=== PATIENT | female | born 1975 | race Caucasian/White ===

== ENCOUNTER 2023-08-16 19:24 | Inpatient (IN) | payer OTHER ==
[~2023-08-16] VITALS: Ht 162.6 cm; Wt 52.2 kg
[2023-08-16 19:30] VITALS: BP_SYST 103; PULSE 67; RESP 18; TEMP 98.2; O2SAT 100
[2023-08-16 19:41] VITALS: BP_SYST 141; PULSE 84; RESP 20; TEMP 97.8; O2SAT 97
[2023-08-16 20:50] LABS: BILIRUBIN,URINE NEGATIVE (NEGATIVE); BLOOD, URINE 1+ (NEGATIVE); CLARITY/URINE CLEAR (CLEAR); COLOR,URINE YELLOW (YELLOW); GLUCOSE,URINE NEGATIVE (NEGATIVE); KETONES,URINE 1+ (NEGATIVE); LEUKOCYTE ESTERASE ,URINE NEGATIVE (NEGATIVE); NITRITE, URINE NEGATIVE (NEGATIVE); PH,URINE 6.5 (5.0-8.0); PROTEIN URINE NEGATIVE (NEGATIVE); UROBILINOGEN,URINE 0.2 (0.2-1.0)
[2023-08-16] MEDS ORDERED: NACL 0.9% 1,000 ML IV ONE (21:15)
[2023-08-16 21:17] LABS: BACTERIA,URINE None Seen /HPF (None Seen)
[2023-08-16] MEDS ORDERED: PIPERACILLIN/TAZO 3.375 GM in NS 50 ML IV ONE (21:30)
[2023-08-16 21:31] LABS: CALCIUM 9.7 mg/dL (8.4-11.0); CREATININE 0.8 mg/dL (0.55-1.30); POTASSIUM 3.9 mmol/L (3.5-5.1)
[2023-08-16 21:34] LABS: BASOPHILS # (AUTO) 0.1 K/uL (0.0-0.2); BASOPHILS % (AUTO) 0.5 % (0.0-2.0); EOSINOPHILS % (AUTO) 0.1 % (0.0-4.0); HEMATOCRIT 39.9 % (36-48); HEMOGLOBIN 13.6 g/dL (12.0-16.0); LYMPHOCYTES # (AUTO) 1.7 K/uL (1.0-5.5); LYMPHOCYTES % (AUTO) 14.6 % (20.5-51.5); MEAN CORPUSCULAR HEMOGLOBIN 31 pg (27-31); MEAN CORPUSCULAR HGB CONC 34 % (32-36); MEAN CORPUSCULAR VOLUME 92 fL (79.0-98.0); MONOCYTES # (AUTO) 0.6 K/uL (0.0-1.0); NEUTROPHILS # (AUTO) 9.4 K/uL (1.8-7.7); NEUTROPHILS % (AUTO) 79.8 % (40.0-70.0); PLATELET COUNT (AUTO) 340 K/uL (130-430); RED BLOOD CELL COUNT(AUTO) 4.34 MIL/uL (4.2-6.2); RED CELL DISTRIBUTION WIDTH 13.1 % (9.0-15.0); WHITE BLOOD COUNT (AUTO) 11.7 K/uL (4.8-10.8)
[2023-08-16 21:42] LABS: ALBUMIN 3.9 g/dL (3.4-4.8); TOTAL BILIRUBIN 0.6 mg/dL (0.0-1.0); TOTAL PROTEIN, SERUM 8.2 g/dL (6.4-8.3)
[2023-08-16] MEDS: PIPERACILLIN/TAZO 3.375 GM in NS 50 ML IV SCH (22:00)
[2023-08-16] MEDS ORDERED: PIPERACILLIN/TAZOBACTAM 3.375 GM/VIAL (ZOSYN) IV ONE (22:03)
[2023-08-17] MEDS: D5/0.45 NS 1,000 ML IV SCH ×2 (01:41→22:13)
[2023-08-17] MEDS: PIPERACILLIN/TAZO 3.375 GM in NS 50 ML IV SCH ×3 (06:00→22:13)
[2023-08-17] MEDS ORDERED: HYDROmorphone 1 MG/ML INJ. CARTRIDGE IVP PRN ×4 (06:45→07:00)
[2023-08-17] MEDS ORDERED: ONDANSETRON HCL 4 MG/2 ML VIAL IVP PRN (06:45)
[2023-08-17 07:00] VITALS: O2SAT 100
[2023-08-17 08:00] VITALS: BP_SYST 109; PULSE 68; RESP 16; TEMP 98; O2SAT 90
[2023-08-17 12:00] VITALS: BP_SYST 112; PULSE 70; RESP 17; TEMP 98.6; O2SAT 95
[2023-08-17 19:00] VITALS: O2SAT 98
[2023-08-17] MEDS ORDERED: PANTOPRAZOLE SODIUM 40 MG/VIAL (PROTONIX) IVP ONE (19:15)
[2023-08-17 20:00] VITALS: BP_SYST 106; PULSE 64; RESP 16; TEMP 99; O2SAT 98
[2023-08-18 00:06] VITALS: BP_SYST 95; PULSE 65; RESP 16; TEMP 97.5; O2SAT 98
[2023-08-18] MEDS: D5/0.45 NS 1,000 ML IV SCH (04:00)
[2023-08-18 05:32] LABS: BASOPHILS # (AUTO) 0.1 K/uL (0.0-0.2); BASOPHILS % (AUTO) 1.1 % (0.0-2.0); EOSINOPHILS # (AUTO) 0.1 K/uL (0.0-0.4); EOSINOPHILS % (AUTO) 2.5 % (0.0-4.0); HEMATOCRIT 35.1 % (36-48); HEMOGLOBIN 11.6 g/dL (12.0-16.0); LYMPHOCYTES % (AUTO) 34.2 % (20.5-51.5); MEAN CORPUSCULAR HEMOGLOBIN 31 pg (27-31); MEAN CORPUSCULAR HGB CONC 33 % (32-36); MEAN CORPUSCULAR VOLUME 93 fL (79.0-98.0); MONOCYTES # (AUTO) 0.6 K/uL (0.0-1.0); MONOCYTES % (AUTO) 10.9 % (1.7-9.3); NEUTROPHILS # (AUTO) 2.9 K/uL (1.8-7.7); NEUTROPHILS % (AUTO) 51.3 % (40.0-70.0); PLATELET COUNT (AUTO) 269 K/uL (130-430); RED BLOOD CELL COUNT(AUTO) 3.78 MIL/uL (4.2-6.2); RED CELL DISTRIBUTION WIDTH 13.2 % (9.0-15.0); WHITE BLOOD COUNT (AUTO) 5.7 K/uL (4.8-10.8)
[2023-08-18 05:37] LABS: CALCIUM 8.9 mg/dL (8.4-11.0); CREATININE 0.82 mg/dL (0.55-1.30); POTASSIUM 3.8 mmol/L (3.5-5.1)
[2023-08-18] MEDS: PIPERACILLIN/TAZO 3.375 GM in NS 50 ML IV SCH (05:45)
[2023-08-18 07:30] VITALS: BP_SYST 92; PULSE 59; RESP 17; TEMP 99; O2SAT 100
[2023-08-18 07:38] LABS: ALBUMIN 3.1 g/dL (3.4-4.8); BILIRUBIN,DIRECT 0.2 mg/dL (0.0-0.3); TOTAL BILIRUBIN 0.5 mg/dL (0.0-1.0); TOTAL PROTEIN, SERUM 6.8 g/dL (6.4-8.3)
[2023-08-18] MEDS ORDERED: PANTOPRAZOLE SODIUM 40 MG/VIAL (PROTONIX) IVP SCH (09:00)
[2023-08-18 11:30] VITALS: BP_SYST 103; PULSE 59; RESP 17; TEMP 98.5; O2SAT 100
[2023-08-18] MEDS ORDERED: LEVO-62 PO (11:32)
[2023-08-18] MEDS ORDERED: LANS30CA56 PO (11:32)
[2023-08-18 12:45] VITALS: BP_SYST 103; PULSE 59; RESP 18; TEMP 98.5; O2SAT 100
== END 2023-08-18 14:30 | disposition home or self-care (01) | DRG 444 ==
LOC: SED 19:24 → SMU 21:50
PROVIDERS: ADMIT Specialist; ATTEND Specialist
PROC: CF1C1ZZ Planar Nuclear Medicine Imaging of Hepatobiliary System, All using Technetium 99m (Tc-99m) (ICD-10-PCS; principal; 2023-08-17)
DX: K80.01 Calculus of gallbladder with acute cholecystitis with obstruction (principal); K85.90 Acute pancreatitis without necrosis or infection, unspecified; B17.9 Acute viral hepatitis, unspecified; E87.1 Hypo-osmolality and hyponatremia; E86.0 Dehydration; K21.9 Gastro-esophageal reflux disease without esophagitis; Z88.8 Allergy status to other drugs, medicaments and biological substances; Z91.041 Radiographic dye allergy status; Z90.710 Acquired absence of both cervix and uterus
CPT/HCPCS: 36415; 74160-TC; 74181; 76376; 76705; 78226; 80048; 80053; 80076; 81000; 81001; 81015; 83605; 83690; 85025; 87040; 93005; 93306; 96365; 99285; A9537; C9113; J2543